=== PATIENT | female | born 1990 | race Hispanic/Latino ===

== ENCOUNTER 2017-09-12 14:04 | Emergency (ER) | payer OTHER ==
[2017-09-12] MEDS ORDERED: MECLIZINE HCL 12.5 MG TAB PO ONE (14:30)
[2017-09-12] MEDS ORDERED: MORPHINE SULFATE INJ 10 MG/ML INJ ONE (14:30)
[2017-09-12] MEDS ORDERED: DEXAMETHASONE SOD PHOS 10 MG/1 ML VIAL INJ ONE (14:30)
[2017-09-12 20:04] VITALS: BP 126/74
== END 2017-09-12 15:10 | disposition home or self-care (01) ==
LOC: FSED 14:04
DX: R42 Dizziness and giddiness (principal); R51 Headache
CPT/HCPCS: 99282; J1100; J2270

== ENCOUNTER 2017-09-30 15:22 | Emergency (ER) | payer OTHER ==
[~2017-09-30] VITALS: Ht 152.4 cm; Wt 108.9 kg
--- OUTSIDE RECORDS SUMMARY | 2017-09-30 15:25 | XMS REPORT | Continuity of Care Document ---
Author Author [facility] Organization [facility] Address [address] [place] [address] Phone Unavailable Care Team Providers Care Vegetable Farm Manager Name Role Phone NONSTAFF PCP Unavailable Insurance Providers Guarantor SusanMary Anne Address [address] [place] [address] Email [email or web address] Payer [employer] Policy Number [id number] Subscriber's Name Mary Anne Davis Relationship 18 Self / Same As Patient Group Number [id number] Group Name [facility] Effective Date 16 Advance Directives Directive Response Recorded Date/Time Does the patient have an advance directive? No 09/12/17 2:22pm If yes, is advance directive on file with [facility]? No 09/12/17 2:22pm If not on file with [facility] will patient provide a copy? No 09/12/17 2:22pm Do you have a Directive to Physician? No 09/12/17 2:22pm Do you have a Medical Power of Pipe [employer] Wel[employer]? No 09/12/17 2:22pm Do you have an out of hospital Do Not Resuscitate Order? No 09/12/17 2:22pm Do you have any special needs we should be aware of? No 09/12/17 2:22pm Do you have a support person here with you today? Yes 09/12/17 2:22pm Did patient receive Notice of Privacy Practices? Yes 09/12/17 2:22pm Did patient receive patient rights and responsibilities? Yes 09/12/17 2:22pm Problems No problem information available. Medications No medication information available. Social History Smoking Status Start Date Stop Date Never Smoker Hospital Discharge Instructions No hospital discharge instruction information available. Plan of Care Discharge Date 09/12/17 3:10pm Disposition HOME, SELF-CARE Condition at Discharge Stable Instructions/Education Provided Sinusitis - Acute Forms Provided Work/School Excuse Prescriptions See Medication Section Referrals Shantell Maher Additional Instructions/Education Discussed the working diagnosis of sinusitis. Recommend medical therapy and follow up with MD if no better in 2-3 days. Functional Status No functional status information available. Allergies, Adverse Reactions, Alerts No known allergies. Immunizations No immunization information available. Vital Signs Acute Vital Signs Vital Response Date/Time Pulse Pulse Rate (adult) 72 bpm (60 - 90) 09/12/2017 8:04pm Respiratory Rate 16 bpm (12 - 24) 09/12/2017 8:04pm Blood Pressure 126/74 mm Hg 09/12/2017 8:04pm Results No relevant diagnostic test, laboratory data and/or discharge summary information available. Procedures No procedure information available. Encounters Encounter Location Arrival/Admit Date Discharge/Depart Date Attending Provider Departed Emergency Room [facility] 09/12/17 2:04pm 3:10pm YURY MENEZES MD
[2017-09-30] MEDS ORDERED: ONDANSETRON HCL INJ 2 MG/ML VIAL IV STA (15:38)
[2017-09-30] MEDS ORDERED: SODIUM CHLORIDE 0.9% 1000ML 1,000 ML IV STA (15:38)
[2017-09-30] MEDS ORDERED: MORPHINE SULFATE 4 MG/ML SYR IV STA (15:38)
[2017-09-30 16:13] LABS: BILIRUBIN,URINE NEGATIVE (NEGATIVE); KETONES,URINE NEGATIVE (NEGATIVE); LEUKOCYTE ESTERASE ,URINE NEGATIVE (NEGATIVE); NITRITE,URINE NEGATIVE (NEGATIVE); PROTEIN,URINE DIPSTICK NEGATIVE (NEGATIVE); URINE UROBILINOGEN 0.2 mg/dL (0.2 - 1)
[2017-09-30 16:14] LABS: CLARITY,URINE CLEAR (CLEAR); COLOR,URINE YELLOW (YELLOW)
[2017-09-30] MEDS ORDERED: MORPHINE SULFATE 2 MG/ML SYR ONE (16:18)
[2017-09-30 16:30] LABS: BASOPHILS % 0.3 % (0.0-1.0); EOSINOPHILS # (AUTO) 0.2 (0.0-0.4); EOSINOPHILS % 2.3 % (0.0-6.0); HEMATOCRIT 42.6 % (34.2-44.1); HEMOGLOBIN 13.9 g/dL (12.0-16.0); LYMPHOCYTES # (AUTO) 3.1 (1.0-3.2); MEAN CORPUSCULAR HGB CONC 32.6 g/dL (31-35); MEAN CORPUSCULAR VOLUME 82.7 fL (81-99); MONOCYTES # (AUTO) 0.5 (0.2-0.8); MONOCYTES % 4.4 % (4.4-11.3); NEUTROPHILS # (AUTO) 6.4 (2.1-6.9); NEUTROPHILS % 62.5 % (38.7-80.0); PLATELET COUNT 266 x10e3/uL (140-360); RED BLOOD COUNT 5.15 x10e6/uL (3.6-5.1)
[2017-09-30 16:33] LABS: BACTERIA,URINE FEW /HPF; EPITHELIAL CELLS,URINE MODERATE /LPF
[2017-09-30 17:11] LABS: ALANINE AMINOTRANSFERASE 24 IU/L (0-55); ALBUMIN 4.1 g/dL (3.5-5.0); ALKALINE PHOSPHATASE 103 IU/L (40-150); ANION GAP 12.7 mmol/L (8-16); BLOOD UREA NITROGEN 8 mg/dL (7-26); BUN/CREATININE RATIO 11 (6-25); CALCIUM 9.1 mg/dL (8.4-10.2); CARBON DIOXIDE 26 mmol/L (22-29); CHLORIDE 104 mmol/L (98-107); CREATININE, SERUM 0.76 mg/dL (0.57-1.11); EST GLOMERULAR FILTRATION RATE > 60 ML/MIN (60-); GLUCOSE 75 mg/dL (74-118); POTASSIUM 3.7 mmol/L (3.5-5.1); SODIUM 139 mmol/L (136-145)
--- NOTE | 2017-09-30 18:14 | Diagnostic Imaging Report ---
PROCEDURE: CT ABDOMEN AND PELVIS WITH CONTRAST TECHNIQUE: The abdomen and pelvis were scanned utilizing a multidetector helical scanner from the diaphragm to the lesser trochanter after the IV administration of 100 cc of Isovue 370. Coronal and sagittal multiplanar reformations were obtained. COMPARISON: None. INDICATIONS: RIGHT LOWER QUADRANT PAIN FINDINGS: LOWER THORAX: Normal. HEPATOBILIARY: No focal hepatic lesions. Status post cholecystectomy. No biliary ductal dilatation. SPLEEN: No splenomegaly. PANCREAS: No ductal dilatation. A 3 mm hypodensity in the pancreatic neck is indeterminate. ADRENALS: No adrenal nodules. KIDNEYS/URETERS: No hydronephrosis, stones, or solid mass lesions. PELVIC ORGANS/BLADDER: Unremarkable. PERITONEUM / RETROPERITONEUM: No free air or fluid. LYMPH NODES: No lymphadenopathy. VESSELS: Unremarkable. GI TRACT: No distention or wall thickening. The appendix is normal. BONES AND SOFT TISSUES: Unremarkable. IMPRESSION: No specific findings to explain the patient's right lower quadrant pain. The appendix is normal. Dictated by: Michael Pelaez M.D. on 09/30/2017 at 18:14 Electronically approved by: Michael Pelaez M.D. on 09/30/2017 at 18:14
[2017-09-30 18:49] VITALS: BP 122/75
[2017-09-30] MEDS ORDERED: IOPAMIDOL 370 MG/ML 200 ML INFUS..BTL INJ ONE (19:16)
[2017-09-30] MEDS ORDERED: SODIUM CHLORIDE 0.9% 50ML 50 ML ONE (19:16)
== END 2017-09-30 18:51 | disposition home or self-care (01) ==
LOC: ER 15:22
DX: R10.31 Right lower quadrant pain (principal)
CPT/HCPCS: 36415; 74177; 80053; 81001; 81025; 85025; 87086; 99284; J2270; J2405; J7030; Q9967

== ENCOUNTER 2022-01-27 11:58 | Emergency (ER) | payer OTHER ==
[~2022-01-27] VITALS: Ht 152.4 cm; Wt 112.0 kg
[2022-01-27] MEDS ORDERED: SODIUM CHLORIDE 0.9% 1000ML 1,000 ML IV STA (12:28)
[2022-01-27] MEDS ORDERED: ONDANSETRON HCL INJ 2MG/ML 2ML 2 MG/ML VIAL ONE (12:58)
[2022-01-27] MEDS ORDERED: KETOROLAC TROMETHAMINE 30 MG/ML VIAL ONE (12:59)
[2022-01-27] MEDS ORDERED: SODIUM CHLORIDE 0.9% 1000ML 1,000 ML ONE (12:59)
[2022-01-27] MEDS ORDERED: KETOROLAC TROMETHAMINE 30 MG/ML VIAL IV ONE (13:00)
[2022-01-27] MEDS ORDERED: ONDANSETRON HCL INJ 2MG/ML 2ML 2 MG/ML VIAL IV ONE (13:00)
[2022-01-27] MEDS ORDERED: CEFDINIR300 MG PO (13:58)
[2022-01-27] MEDS ORDERED: ACETAMINOPHEN500 MG PO (13:58)
[2022-01-27] MEDS ORDERED: IBUPROFEN200 MG PO (13:58)
== END 2022-01-27 14:07 | disposition home or self-care (01) ==
LOC: FSED 12:29
DX: M51.26 Other intervertebral disc displacement, lumbar region (principal); N63.0 Unspecified lump in unspecified breast; R10.9 Unspecified abdominal pain
CPT/HCPCS: 74176; 80048; 85025; 96374; 96376; 99283; J1885; J2405; J7030